=== PATIENT | female | born 1965 | race Caucasian/White ===

== ENCOUNTER 2022-05-26 07:20 | Day surgery (SDC) | payer OTHER, SELFPAY ==
[2022-05-26] VITALS (12 sets, daily range): BP systolic 91–126; BP diastolic 52–68; PULSE 51–68; RESP 14–16; TEMP 36.1–36.7; O2SAT 96–100; BMI 29.5
[2022-05-26] MEDS: LACTATED RINGERS 1000 ML 1,000 ML 100 ML IV ×2 (07:20→09:46)
--- NOTE | 2022-05-26 08:18 | W.ANESCHARGE ---
Anesthesia Charges Start Date/Time Anesthesia Start Date: 05/26/22 Anesthesia Start Time: 08:39 Stop Date/Time Anesthesia Stop Date: 05/26/22 Anesthesia Stop Time: 09:31
[2022-05-26] MEDS: CEFAZOLIN 2 GM INJ IVP (08:45)
[2022-05-26] MEDS: BUPIVACAINE 0.25% 30 ML INJECTION (09:20)
--- NOTE | 2022-05-26 09:22 | P.ORPRC_ITS ---
Procedure Note Date of procedure: 05/26/22 Procedure: PREOPERATIVE DIAGNOSIS: Right knee lateral meniscus tear POSTOPERATIVE DIAGNOSIS: Right knee lateral meniscus tear NAME OF OPERATION: Right knee arthroscopic partial lateral meniscectomy SURGEON: Tato Siddiqi MD PRINTED CIRCUIT BOARD PREASSEMBLER: MARA Blankenship ANESTHESIA: Spinal ESTIMATED BLOOD LOSS: 0 mL COMPLICATIONS: None SPECIMENS: None DRAINS: None PREOPERATIVE ANTIBIOTICS: Ancef 2 gram INDICATIONS: The patient is a 57-year-old with a history of right knee lateral pain. MRI scan is consistent with a lateral meniscus tear. Despite appropriate nonoperative management, including activity modification, antiinflammatories, [id number]-[id number] pain medication, bracing, physical therapy, and injections they continue to have pain and disability. Operative intervention was offered. The risks, benefits and expected outcomes were discussed in detail. These included but were not limited to: Infection, bleeding, injury to blood vessel or nerve, venous thromboembolism. All questions were answered to their satisfaction. PROCEDURE: Spinal anesthesia was administered. The patient was placed supine on the operating room table. The right lower extremity was prepped and draped in the usual sterile fashion. The limb was exsanguinated with the Raza bandage. The pneumatic tourniquet was inflated to 300 mmHg. A standard anterolateral portal was established. The arthroscope was introduced. The working portal was established anteromedially. Diagnostic arthroscopy was performed with findings as follows: The suprapatellar pouch is normal. Articular surface on the patella is normal. Articular surface on the trochlea is normal. The medial gutter is normal. The medial compartment shows a small focal area of grade 3 change on the central weight-bearing portion of the medial femoral condyle, articular cartilage on the medial tibial plateau is normal. The medial meniscus is normal. The notch shows the ACL to be intact. The lateral compartment shows diffuse grade 3 change on the lateral tibial plateau, normal articular cartilage on the lateral femoral condyle. The lateral meniscus has a complex degenerative tear of the posterior horn, midbody and anterior horn. There was a large unstable, anteriorly based flap tear of the posterior horn. Posterior root is intact. There is a parameniscal cyst off of the anterior tibial attachment of the lateral meniscus. The lateral gutter is normal. The posterior horn, midbody and anterior horn of the lateral meniscus were debrided with the shaver through both portals, taken to a stable base. The parameniscal cyst was debrided with the shaver. Unstable chondral flaps on medi al femoral condyle were debrided with the shaver, taken to a stable base. Arthroscopic instruments were removed, the portal sites were Steri-Stripped closed, the knee was infiltrated with 30 mL of 0.25% Marcaine without epinephrine. A dry dressing was applied, the tourniquet was released. Sponge and needle counts were correct x 2. The patient tolerated the procedure well. There were no apparent complications. They were carefully transferred to the hospital bed and taken to the postanesthesia care unit in satisfactory condition. PLAN: The patient will be discharged to home. They may weightbear as tolerates. Range of motion will be unrestricted. They will follow up in the office next week for a wound check.
--- NOTE | 2022-05-26 09:32 | W.ANESCHARGE ---
Anesthesia Charges Start Date/Time Anesthesia Start Date: 05/26/22 Anesthesia Start Time: 08:39 Stop Date/Time Anesthesia Stop Date: 05/26/22 Anesthesia Stop Time: 09:31
== END 2022-05-26 10:59 | disposition home or self-care (01) ==
PROVIDERS: PCP Family Medicine; Visit Provider Orthopaedic Surgery
PROC: (CPT 29870; principal; 2022-05-26 08:30)
DX: M23.252 Derangement of posterior horn of lateral meniscus due to old tear or injury, left knee (principal); M23.242 Derangement of anterior horn of lateral meniscus due to old tear or injury, left knee
CPT/HCPCS: 29881; 01400; J0690; J1100; J2250; J2405; J2704; J3010; J3490; J7120

== ENCOUNTER 2022-06-15 08:00 | Outpatient (RCR) | payer OTHER, SELFPAY | END 2022-10-13 23:59 | disposition home or self-care (01) | PROVIDERS: PCP Family Medicine; Visit Provider Physician Assistant Surgical | DX: Z98.890 Other specified postprocedural states (principal); R26.9 Unspecified abnormalities of gait and mobility; M62.81 Muscle weakness (generalized); M25.561 Pain in right knee; Z51.89 Encounter for other specified aftercare | CPT/HCPCS: 97110; 97161; 97530 ==

== ENCOUNTER 2023-03-17 11:15 | Outpatient (RCR) | payer OTHER, SELFPAY | END 2023-05-31 14:42 | disposition home or self-care (01) | PROVIDERS: PCP Family Medicine; Visit Provider Orthopaedic Surgery | DX: M70.72 Other bursitis of hip, left hip (principal); M76.30 Iliotibial band syndrome, unspecified leg; M25.562 Pain in left knee; R26.9 Unspecified abnormalities of gait and mobility; R26.81 Unsteadiness on feet; R53.1 Weakness; R29.898 Other symptoms and signs involving the musculoskeletal system; M25.552 Pain in left hip; M25.652 Stiffness of left hip, not elsewhere classified; M25.851 Other specified joint disorders, right hip; Z51.89 Encounter for other specified aftercare | CPT/HCPCS: 97110; 97112; 97140; 97162 ==

== ENCOUNTER 2023-04-27 06:47 | Outpatient (CLI) | payer OTHER, SELFPAY ==
[2023-04-27 07:04] VITALS: BP 115/72; PULSE 63; RESP 16; O2SAT 98
--- NOTE | 2023-04-27 07:29 | PM.ORPRC ---
Procedure Note Date of procedure: 04/27/23 Procedure: PREOPERATIVE DIAGNOSIS: Left hip abductor tendinopathy/greater trochanteric bursitis POSTOPERATIVE DIAGNOSIS: Left hip abductor tendinopathy/greater trochanteric bursitis NAME OF OPERATION: Percutaneous tenotomy SURGEON: Tato Siddiqi MD COSMETOLOGY PROFESSOR: Essence Cano PA-C ANESTHESIA: Local ESTIMATED BLOOD LOSS: 2 mL. COMPLICATIONS: None. SPECIMENS: None. DRAINS: None. PREOPERATIVE ANTIBIOTICS: None INDICATIONS: The patient is a 58-year-old with a history of left hip pain secondary to the above diagnoses. Despite appropriate non operative management, they continue to have symptoms. Operative intervention was recommended. The risks, benefits and expected outcomes were discussed in detail. These included but were not limited to: Infection, bleeding, injury to blood vessel or nerve, venous thromboembolism. All questions were answered to their satisfaction. PROCEDURE: The patient was placed in the lateral decubitus position. The left hip was imaged in the long and short axes with the ultrasound transducer. Normal acoustic landmarks were identified. We then sterilely prepped and draped the skin, and used a sterile probe cover with sterile gel. Local anesthesia was established with 10 mL of a solution containing 2 % lidocaine without epinephrine, 0.5% Marcaine without epinephrine and sodium bicarbonate. An 11 blade was used to incise the skin. The Tenex TX 2 micro tip was used to treat the abductor tendon for a total of 4 minutes and 0 seconds. The incision was Steri-Stripped closed. A dry dressing was applied. Sponge and needle counts were correct x2. The patient tolerated the procedure well. There were no apparent complications. They were discharged to home in satisfactory condition. PLAN: The patient may weightbear as tolerates. Tylenol can be used for pain/discomfort. They may ramp up activity as the hip will allow. They will follow up in the office in 6 weeks to assess their progress.
[2023-04-27 07:34] VITALS: BP 123/76; PULSE 71; RESP 16; O2SAT 96
== END 2023-04-27 07:39 | disposition home or self-care (01) ==
LOC: US 06:47
PROVIDERS: PCP Family Medicine; Visit Provider Orthopaedic Surgery
DX: M70.62 Trochanteric bursitis, left hip (principal)
CPT/HCPCS: 27006; 76942; J0665

== ENCOUNTER 2023-05-04 08:02 | Outpatient (CLI) | payer OTHER, SELFPAY ==
--- NOTE | 2023-05-04 08:15 | MR_ITS ---
[address] [address] Phone:?[phone] Fax:?[phone] Referring Physician Information: Tato Siddiqi M.D. [id number] [facility] [address] Phone:?[phone] Fax:?[phone] Patient:Zeferino Lima D.O.B:?1965 Sex:?Female Phone:?[phone] [facility] MRN:?[id number] Exam Date:?05/04/2023 EXAM: MRI EXAMINATION OF THE LEFT KNEE CLINICAL INFORMATION: Left knee pain. Evaluate for possible meniscal tear. TECHNICAL INFORMATION: Coronal PD and STIR. Axial PD and T2 fat saturation. Sagittal PD and PD fat saturation images acquired. No prior studies for comparison. INTERPRETATION: Bones: No appreciable subchondral edema signal or cystic change. No evidence for an occult fracture/stress reaction. No evidence for AVN. No other abnormal bone marrow edema pattern is identified. Ligaments and tendons: Residua of a chronic sprain injury and mild associated thickening involving the proximal one third of the MCL. The iliotibial band, fibular collateral ligament, biceps femoris tendon and popliteus tendon all are intact. Mild soft tissue thickening and edema signal deep to the IT band traversing the lateral femoral epicondyle level. The anterior cruciate ligament is intact without acute sprain or tear. The posterior cruciate ligament is intact. Extensor Mechanism: The patellar and quadriceps tendons are intact. The medial and lateral retinacula are intact. Knee Joint: There is no knee joint effusion. No evidence for a discrete popliteal cyst. There is a mild appearance of semimembranosus/tibial collateral ligament bursitis. There is no discrete loose body seen within the joint. Medial Compartment: There is a horizontal appearance of tear involving the body of the medial meniscus. Undersurface tear involving the junction of mid and peripheral one third portion extends just into the posterior horn as well. No displaced flap fragment or parameniscal cyst. There is no focal chondral defect. No other significant changes of chondromalacia. Lateral Compartment: There is no evidence for discrete lateral meniscal tear. No displaced flap fragment or parameniscal cyst. There is a 6 mm segment of a 3 to IV chondromalacia involving the central surface of the lateral tibial plateau. No other significant changes of chondromalacia. Patellofemoral articulation: Series 4 images 11 through 13 demonstrate a 0.6 x 0.4 cm segment of grade 3 to IV chondromalacia with fissuring and delamination involving the mid surface of the medial patellar facet. No other significant chondromalacia. CONCLUSION: 1. Horizontal tear involves the body of the medial meniscus. Undersurface tear extends just into the posterior horn. 2. No lateral meniscal tear. 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 3. There is a small segment of grade III to IV chondromalacia with fissuring and delamination involving the medial patellar facet. 4. Residua of a chronic low-grade MCL sprain injury. 5. Mild semimembranosus/tibial collateral ligament bursitis. Mild bursal inflammation deep to the IT band traversing the distal femur. KES Electronically signed on 05/04/2023 2:05:00 PM by Gerhard Boston M.D.
== END 2023-05-04 08:03 | disposition home or self-care (01) ==
LOC: MRI 08:03
PROVIDERS: PCP Family Medicine; Visit Provider Orthopaedic Surgery
DX: M25.562 Pain in left knee (principal); S83.242A Other tear of medial meniscus, current injury, left knee, initial encounter; M94.262 Chondromalacia, left knee; S83.412A Sprain of medial collateral ligament of left knee, initial encounter; M76.42 Tibial collateral bursitis [Pellegrini-Stieda], left leg
CPT/HCPCS: 73721

== ENCOUNTER 2023-06-08 11:15 | Outpatient (RCR) | payer OTHER, SELFPAY | END 2023-10-06 23:59 | disposition home or self-care (01) | PROVIDERS: PCP Family Medicine; Visit Provider Orthopaedic Surgery | DX: M76.32 Iliotibial band syndrome, left leg (principal); M25.562 Pain in left knee; R26.89 Other abnormalities of gait and mobility; R29.898 Other symptoms and signs involving the musculoskeletal system; Z51.89 Encounter for other specified aftercare | CPT/HCPCS: 97110; 97140; 97162 ==

== ENCOUNTER 2024-03-12 06:13 | Day surgery (SDC) | payer OTHER, SELFPAY ==
[2024-03-12] VITALS (25 sets, daily range): BP systolic 83–119; BP diastolic 53–73; PULSE 58–82; RESP 16; TEMP 35.9–36.6; O2SAT 90–99; BMI 29.9
[2024-03-12] MEDS: OXYCODONE (CR) 10 MG TAB.ER.12H PO (06:45)
[2024-03-12] MEDS: ACETAMINOPHEN 500 MG TABLET 1000 MG PO ×2 (06:45→14:45)
[2024-03-12] MEDS: CELECOXIB 200 MG CAPSULE PO (06:45)
[2024-03-12] MEDS: LACTATED RINGERS 1000 ML 1,000 ML 100 ML IV (06:50)
[2024-03-12] MEDS: SODIUM CHLORIDE 0.9 % (FLUSH) 10 ML SYRINGE IVF ×2 (06:50→13:35)
[2024-03-12] MEDS: fentaNYL 100 MCG/2 ML inj IVP (06:58)
[2024-03-12] MEDS: MIDAZOLAM HCL 1 MG/ML inj IVP (06:58)
[2024-03-12] MEDS: TRANEXAMIC ACID 100 MG/ML INJ 1000 MG IV (08:06)
[2024-03-12] MEDS: CEFAZOLIN 2 GM INJ IVP (08:06)
--- NOTE | 2024-03-12 08:13 | W.PM.NB ---
Nerve Block Nerve Block Time Seen by Provider: 07:07 Date Seen: 03/12/24 Type of block requested by surgeon for post-operative analgesia: TJ/LFCN Side: left Time out performed: Yes Verification of patient name: Yes Verification of date of : Yes Site marking: site marked Name of person performing procedure: Rajat Continuous monitoring Was continuous monitoring of O2 sat, B/P, media marketing director, recorded every 15 minutes?: Yes Procedure Checklist: sterile prep, needles and gloves Ultrasound guided. Images saved: Yes Medications given in 5ml increments after negative aspiration: Ropivicaine %: 0.5 mL: 30 Needle gauge: 20 Precedex (mcg): 25 Patient tolerated procedure well: Yes Additional comments: Needle noted below psoas tendon needle noted adjacent to LFCN Block Charges Block Charge (with Pro Fee): Other Periph Nerve Block Use of Ultrasound Machine for Block: Yes- US Guidance/pain block
--- NOTE | 2024-03-12 09:37 | PM.ORPRC ---
Procedure Note Date of procedure: 03/12/24 Procedure: PREOPERATIVE DIAGNOSIS: Left hip osteoarthritis POSTOPERATIVE DIAGNOSIS: Left hip osteoarthritis NAME OF OPERATION: Left total hip arthroplasty SURGEON: Tato Siddiqi MD METER CALIBRATOR: Loly Cano PA-C, MARA Blankenship IMPLANTS: 1. [employer] [place] # 50 sector ingrowth cup 2. 32 x 50 +4 neutral polyethylene 3. Actis # 5 standard collared ingrowth stem 4. 32 + 1 ceramic femoral head ANESTHESIA: Spinal ESTIMATED BLOOD LOSS: 350 cc COMPLICATIONS: None SPECIMENS: None DRAINS: None PREOPERATIVE ANTIBIOTICS: Ancef 2 grams INDICATIONS: The patient is a 59-year-old with a longstanding history of severe, unrelenting left hip pain secondary to end-stage left hip osteoarthritis. Despite appropriate nonoperative management, including activity modification, use of an assist device, anti-inflammatories, tzgt-yph-[id number] pain medication, physical therapy and injections, they continue to have pain and disability. Operative intervention was offered. The risks, benefits and expected outcomes were discussed in detail. These included but were not limited to: Infection, bleeding, injury to blood vessel or nerve, venous thromboembolism. All questions were answered to their satisfaction. Use of an certified registered dental assistant was necessary throughout the case for patient positioning and safety, soft tissue retraction and closure. PROCEDURE: The patient was placed supine on the [place] table. General anesthesia was administered. The certified registered dental assistant made sure the patient was properly positioned. The left hip was prepped and draped in the usual sterile fashion. The image intensifier was brought in for a perfect AP pelvis and a perfect double tear drop AP view of each hip which were used for intraoperative templating with our fluoroscopic guide. An oblique incision was made 3 cm distal and 3 cm lateral to the anterior superior iliac spine. The certified registered dental assistant retracted the soft tissues to protect them. Subcutaneous dissection was taken with electrocautery to the superficial fascia. The fascia was divided in line with the incision. Blunt dissection was carried medially to the tensor fascia patricia and sartorius interval. Deep dissection was carried with electrocautery. The circumflex vessels were cauterized and divided. The capsule was exposed and then divided in a T-fashion, tagged with #1 Ethibond sutures. Retractors were placed in the joint, held by the certified registered dental assistant. The corkscrew was placed in the femoral head. The neck cut was made in the subcapital region. We made a second neck cut more distal. The napkin ring of bone was removed. The femoral head was removed intact. Acetabular retractors were placed, held by the certified registered dental assistant. The labrum was sharply debrided. The capsule was released. The 43 mm reamer was used to the true medial wall. We then enlarged in 2 mm increments using the image intensifier for our reamer placement. We impacted the cup which had excellent purchase. We placed the polyethylene. Attention was then turned to the proximal femur. The limb was placed in 140 degrees of external rotation, maximum extension and adduction. A significant amount of time was spent releasing the capsule to allow us to deliver the femur into the wound and complete the femoral side safely. Retractors were held by the certified registered dental assistant throughout the femoral preparation. The box spring frame builder and canal finder were used. Broaches were used to a stable size. The calcar reamer was used. Trial components were placed. The hip was reduced and was found to be stable with appropriate soft tissue tension. Length and offset had been nicely restored using the image intensifier and our fluoroscopic guide. Trial components were removed. The stem was impacted. We placed the femoral head. Again, the hip was reduced and was found to be stable with appropriate soft tissue tension. Length and offset had been nicely restored. The certified registered dental assistant did a three minute dilute Betadine solution soak. The certified registered dental assistant irrigated the wound with 3 liters of normal saline via pulse lavage. The certified registered dental assistant repaired the anterior capsule with a #1 Vicryl and our previously placed Ethibond sutures. The certified registered dental assistant closed the fascia over the tensor fascia patricia with a #1 PDO Stratafix, subcutaneous tissues with 2-0 Vicryl, skin with a running 3-0 Stratafix and glue. A dry dressing was applied by the certified registered dental assistant. Sponge and needle counts were correct x 2. The patient tolerated the procedure well; there were no apparent complications. They were awakened and extubated in the operating room, sent to the Post-Anesthesia Care Unit in satisfactory condition. PLAN: 1. The patient will be mobilized with physical therapy, weight-bearing as tolerates 2. Xarelto x 5 days then aspirin x 30 days will be used for DVT prophylaxis 3. The patient will be discharged once medically appropriate
--- NOTE | 2024-03-12 09:52 | W.ANESCHARGE ---
Anesthesia Charges Start Date/Time Anesthesia Start Date: 03/12/24 Anesthesia Start Time: 07:34 Stop Date/Time Anesthesia Stop Date: 03/12/24 Anesthesia Stop Time: 10:06 Coding CPT Codes CPT Codes: ANESTH HIP ARTHROPLASTY - 43242 ([id number]) P2 - PATIENT W/MILD SYST DISEASE, QK - PUTAWAY DRIVER 2-4 CNCRNT ANES PROC, QX - CLINICAL SECRETARY SVC W/ MD MED DIRECTION
[2024-03-12] MEDS: LACTATED RINGERS 500 ML 500 ML 100 ML IV ×3 (10:02→11:15)
--- NOTE | 2024-03-12 10:07 | W.ANESCHARGE ---
Anesthesia Charges Start Date/Time Anesthesia Start Date: 03/12/24 Anesthesia Start Time: 07:34 Stop Date/Time Anesthesia Stop Date: 03/12/24 Anesthesia Stop Time: 10:06 Coding CPT Codes CPT Codes: ANESTH HIP ARTHROPLASTY - 20739 ([id number]) P2 - PATIENT W/MILD SYST DISEASE, QK - PIT HAND 2-4 CNCRNT ANES PROC, QX - COUNTY TAX ASSESSOR SVC W/ MD MED DIRECTION
--- NOTE | 2024-03-12 10:23 | SUR.PHASEI ---
Radiology here at 1015 for post-op images ordered.
--- NOTE | 2024-03-12 12:34 | SUR.PHASEII ---
pt having yogurt, toast and pop. Tolerated without difficulty. Pt denies pain.
[2024-03-12] MEDS: ONDANSETRON 2 MG/ML inj 4 MG IVP (13:35)
== END 2024-03-12 15:00 | disposition home or self-care (01) ==
PROVIDERS: PCP Family Medicine; Visit Provider Orthopaedic Surgery
PROC: (CPT 27130; principal; 2024-03-12 07:30)
DX: M16.12 Unilateral primary osteoarthritis, left hip (principal); G89.18 Other acute postprocedural pain; K21.9 Gastro-esophageal reflux disease without esophagitis
CPT/HCPCS: 27130; 01214; 36415; 64450; 73501; 76942; 86850; 86900; 86901; 97110; 97116; 97161; 97165; A9270; C1776; J0690; J1100; J2250; J2405; J2704; J2795; J3010; J7030; J7120

== ENCOUNTER 2024-04-19 14:45 | Outpatient (RCR) | payer OTHER, SELFPAY ==
--- NOTE | 2024-03-20 14:55 | PT.OPDNX ---
PT [facility] Out[facility] Daily Note PT [facility] Outpatient Daily Note Start: 03/06/24 10:55 Freq: Status: Active Protocol: Document 03/20/24 07:23 HLA (Rec: 03/20/24 11:22 HLA [id number]) E-signed By Marina King, PT, DPT PT OP Daily Progress Note Visit Information Note Type Daily Note,Re-Evaluation Visit Number 2 Insurance Information Insurance Name [employer] Medical Diagnosis Pre-op L DOMINGO Referring MD Dr Siddiqi Subjective Preferred Name Lizzie Subjective Lizzie returns 1 week post L DOMINGO at [facility] hospital. Increased edema L thigh, sore and found she had to take increased pain meds. Has been doing her exercises, tends to stay on upper level of her home, not going to 1st floor. Has been using the walker all of the time. Pain Comments Pain L thigh and lat hip, 2/10 , increases to 4-5/10 at times . Precautions Treatment Precautions/Contraindications ant DOMINGO prec Home Exercise Home Exercise Comments Access Code: [email or web address] URL: [email or web address] Date: 03/20/2024 Prepared by: Marina King Exercises - Long Sitting Quad Set - 3 x daily - 7 x weekly - 10 reps - 5 sec hold - Long Sitting Ankle Pumps - 3 x daily - 7 x weekly - 10 reps - 5 sec hold - Supine Gluteal Sets - 2 x daily - 5 x weekly - 2 sets - 10 reps - Supine Isometric Hamstring Set - 3 x daily - 7 x weekly - 10 reps - 5 sec hold - Supine Heel Slide - 3 x daily - 7 x weekly - 10 reps - Standing Hip Abduction with Counter Support - 3 x daily - 7 x weekly - 10 reps Objective Other/Pertinent Objective L HF 0-100, abd 0-25, ER 0-20, IR 0-20 Knee 0-110 flex L hip flex 0-125, abd 0-50, ER /IR full knee R full arms WNL Patient Instructed in Risks/Benefits Yes Therapeutic Exercise Therapeutic Exercise Minutes (minutes) 20 Therapeutic Exercise: To Restore Instructed and reviewed all ex Functional Status x 3 Access Code: [email or web address] URL: [email or web address] Date: 03/20/2024 Prepared by: Marina King Exercises - Long Sitting Quad Set - 3 x daily - 7 x weekly - 10 reps - 5 sec hold - Long Sitting Ankle Pumps - 3 x daily - 7 x weekly - 10 reps - 5 sec hold - Supine Gluteal Sets - 2 x daily - 5 x weekly - 2 sets - 10 reps - Supine Isometric Hamstring Set - 3 x daily - 7 x weekly - 10 reps - 5 sec hold - Supine Heel Slide - 3 x daily - 7 x weekly - 10 reps - Standing Hip Abduction with Counter Support - 3 x daily - 7 x weekly - 10 reps Therapeutic Activity Therapeutic Activities Comments sit<>stand 5 reps with arms ind sit<>supine uses R LE to assist L LE car transfers min assist of LEs Gait & Stair Training Gait Training/Stairs Minutes (minutes) 15 Gait & Stair Training Comments Gait ww 200 feet, good clarisa , reminders to keep walker moving, lessen wt UES. Amb at railing 10 feet x 2, then 50 feet x 2 with cane, sba. Instructed pt in amb program, working on hip ext, walker motion, advancing slowly to cane, pain is her guide. Activity level reviewed. Stairs step to pattern, cane + railing x 3, sba Neuromuscular Re-Ed Neuromuscular Reeducation Comments balance screen good with walker Treatment Minutes Untimed Code Treatment Minutes 10 Timed Code Treatment Minutes 35 Total Treatment Time 45 Billing Units Gait Training/Stairs Units 1 Therapeutic Exercise Units 1 Re-Evaluation Units 1 Assessment/Impression Assessment/Impression Lizzie is 1 week s/p L ant DOMINGO. She is amb with her walker, Gait ww 200 feet, good clarisa , reminders to keep walker moving, lessen wt UES. Amb at railing 10 feet x 2, then 50 feet x 2 with cane, sba. Instructed pt in amb program, working on hip ext, walker motion, advancing slowly to cane, pain is her guide. Pt with stiffness L hip, added fwd bend stretch, sit<>stand, heel on arita to knee and standing hip flex/abd, squats and heel toe raises at counter . Added modified david stretch, L LE on bed, 20 sec to increase stretch L ant thigh. Reviewed her DOMINGO ex, pt to do twice daily and add ex daily as instructed today for 3x/day ex. Reviewed positioning in chair, use of ice/polar care, bed, transfer safety, gt safety with walker, stairs, car transfers. Pt is weak, impaired ROM, impaired transfers and gt and will benefit from weekly PT to return to ind amb level and uneven surfaces, stairs, return to work. Primary Functional Limitations Gait Hiking Sleep Plan of Care Physical Therapy Goals Within 8-10 weeks. 1. Pt will amb level surfaces 20 min without an assistive device and no evidence of limp . 2. Pt will ascend/descend 13 stairs with railing reciprocally, safely and independently for household and community mobility. 3. Pt will demonstrate normal strength of surgical hip to prevent substitution of movement, prevent falls with mobility. 4. Pt will be independent in home ex program to promote strength and mobility and to prevent falls. Equipment Information Equipment Information has walker kendrick canjose
== END 2024-04-19 17:04 | disposition home or self-care (01) ==
PROVIDERS: PCP Family Medicine; Visit Provider Orthopaedic Surgery
DX: M16.12 Unilateral primary osteoarthritis, left hip (principal); Z96.642 Presence of left artificial hip joint; Z51.89 Encounter for other specified aftercare
CPT/HCPCS: 97110; 97116; 97140; 97161; 97164